=== PATIENT | male | born 1965 ===

== ENCOUNTER 2022-03-29 06:04 | Day surgery (SDC) | payer OTHER ==
[~2022-03-29] VITALS: Ht 177.8 cm; Wt 77.6 kg
[~2022-03-29 06:04] MED LIST: COZAAR100 MG PO; NORVASC5 MG PO
== END 2022-03-29 16:25 | disposition home or self-care (01) ==
LOC: CIR.AMB 06:04
PROVIDERS: ATTEND Urology
DX: N47.1 Phimosis (principal); N47.7 Other inflammatory diseases of prepuce; Z20.822 Contact with and (suspected) exposure to COVID-19; I10 Essential (primary) hypertension